=== PATIENT | female | born 2000 | race Asian ===

== ENCOUNTER 2025-06-11 13:39 | Emergency (ER) | payer BC ==
[~2025-06-11] VITALS: Ht 170.2 cm; Wt 61.4 kg
[2025-06-11 13:48] VITALS: BP 104/69; PULSE 72; RESP 18; TEMP 97.9; O2SAT 99
[2025-06-11 14:08] LABS: COVID AG,FIA SOURCE NASAL SWAB
[2025-06-11 14:20] LABS: RAPID GROUP A STREP NEGATIVE (NEGATIVE)
[2025-06-11 14:27] LABS: INFLUENZA TYPE A NEGATIVE FOR TYPE A (NEGATIVE); INFLUENZA TYPE B NEGATIVE FOR TYPE B (NEGATIVE); SARS-COV2 (COVID) ANTIGEN,FIA Negative (Negative)
[2025-06-11] MEDS: ACETAMINOPHEN 325 MG TABLET PO ONE (14:28)
[2025-06-11] MEDS: IBUPROFEN 400 MG TABLET PO ONE (14:29)
== END 2025-06-11 15:00 | disposition home or self-care (01) ==
LOC: EMS 13:39
DX: J02.8 Acute pharyngitis due to other specified organisms (principal); B97.89 Other viral agents as the cause of diseases classified elsewhere; R51.9 Headache, unspecified; Z20.822 Contact with and (suspected) exposure to COVID-19
CPT/HCPCS: 99284; 87426; 87430; 87804; J8540; Z7502; Z7610

== ENCOUNTER 2025-06-14 04:53 | Emergency (ER) | payer BC ==
[~2025-06-14] VITALS: Ht 170.2 cm; Wt 61.4 kg
[2025-06-14 05:36] LABS: APPEARANCE,URINE HAZY (CLEAR); GLUCOSE, URINE (UA) NEGATIVE (NEGATIVE); LEUKOCYTE ESTERASE ,URINE LARGE (NEGATIVE); NITRATE,URINE NEGATIVE (NEGATIVE); OCCULT BLOOD,URINE MODERATE (NEGATIVE); SPECIFIC GRAVITIY, URINE 1.020 (1.003-1.030)
[2025-06-14 06:20] VITALS: TEMP 97.905272
[2025-06-14 06:34] LABS: SQUAMOUS EPITHELIAL CELL,UR Many /LPF (None Seen)
[2025-06-14 07:36] LABS: APPEARANCE,URINE CLEAR (CLEAR); GLUCOSE, URINE (UA) NEGATIVE (NEGATIVE); LEUKOCYTE ESTERASE ,URINE LARGE (NEGATIVE); NITRATE,URINE NEGATIVE (NEGATIVE); OCCULT BLOOD,URINE SMALL (NEGATIVE); SPECIFIC GRAVITIY, URINE 1.005 (1.003-1.030)
[2025-06-14 07:51] LABS: SQUAMOUS EPITHELIAL CELL,UR Rare /LPF (None Seen)
[2025-06-14] MEDS ORDERED: CEPH-558 PO (07:56)
[2025-06-14] MEDS ORDERED: CLOT21CR12 VG (07:56)
[2025-06-14] MEDS: CEPHALEXIN MONOHYDRATE 500 MG CAPSULE PO ONE (08:16)
[2025-06-14 08:21] VITALS: BP 118/75; PULSE 76; RESP 16; O2SAT 100
== END 2025-06-14 08:22 | disposition home or self-care (01) ==
LOC: EMS 06:07
DX: N39.0 Urinary tract infection, site not specified (principal); B37.31 Acute candidiasis of vulva and vagina; L29.9 Pruritus, unspecified; R30.0 Dysuria; Z79.899 Other long term (current) drug therapy
CPT/HCPCS: 81001; 87077; 87086; 87491; 87591; 99283